=== PATIENT | male | born 1945 | race Caucasian/White ===

== ENCOUNTER → 2021-01-31 | Outpatient (CLI) | payer MEDICARE, OTHER ==
[~2021-01-31] MED LIST: HYDR-34 PO; METO100T5 PO
== END ==
LOC: CARD 10:00
PROVIDERS: ATTEND Family Medicine
DX: I08.1 Rheumatic disorders of both mitral and tricuspid valves (principal); I50.9 Heart failure, unspecified
CPT/HCPCS: 93306

== ENCOUNTER → 2021-02-10 | Outpatient (CLI) | payer OTHER ==
[2021-02-10 13:56] LABS: CALCIUM 9.3 MG/DL (8.5-10.1); CREATININE SERUM 1.28 MG/DL (0.60-1.30); POTASSIUM 3.8 MMOL/L (3.6-5.0)
== END ==
LOC: LAB 13:19
PROVIDERS: ATTEND Internal Medicine Cardiovascular Disease
DX: I42.9 Cardiomyopathy, unspecified (principal)
CPT/HCPCS: 36415; 80048

== ENCOUNTER → 2021-03-12 | Outpatient (CLI) | payer OTHER ==
--- NOTE | 2021-03-12 13:57 | Diagnostic Imaging Report ---
Indication: Chronic systolic heart failure There is air trapping bilaterally. There is generalized cardiomegaly. Central pulmonary vessels are prominent without evidence of overt edema. There is blunting of both costophrenic sulcus which could be due to pleural fluid or thickening. IMPRESSION: Findings are suggestive of background COPD with mild bilateral pleural fluid or thickening. There is cardiomegaly without edema to indicate congestive heart failure. Dictated by: Dictated on workstation # [id number]
== END ==
LOC: RAD 12:59
PROVIDERS: ATTEND Internal Medicine Cardiovascular Disease
DX: I50.22 Chronic systolic (congestive) heart failure (principal); I51.7 Cardiomegaly
CPT/HCPCS: 71046